=== PATIENT | female | born 1985 | race Caucasian/White ===

== ENCOUNTER 2020-03-10 09:07 | Day surgery (SDC) | payer OTHER ==
[2020-03-08 09:14] VITALS: BMI 26.5
--- NOTE | 2020-03-09 19:48 | P.HPOB ---
History of Present Illness H&P Date: 03/09/20 Chief Complaint: Menorrhagia with irregular cycle This is a 34 y.o. female, 3, para 2, who presents for dilatation and curettage with hysteroscopy due to irregular, heavy bleeding despite oral contraceptives. She bleeds for 2-3 weeks out of the cycle, sometimes heavy, changing pads every 20 minutes with large clots. This has been occuring for the last 6 months. She has also been fatigued and dizzy. Ultrasound showed uterus measuring 8.1 x 3.8 x 4.1 cm with a questionable 0.9 cm fibroid within the endometrium. Both ovaries were normal. OB Hx: . History of 2 vaginal deliveries and 1 miscarriage. 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 Normal pap 11/2018. Social Hx: . 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 Review of Systems Constitutional: Reports fatigue, Denies chills, Denies fever Eyes: denies blurred vision, denies pain Ears, nose, mouth and throat: Denies headache, Denies sore throat Cardiovascular: Denies chest pain, Denies shortness of breath Respiratory: Denies cough Gastrointestinal: Denies abdominal pain, Denies diarrhea, Denies nausea, Denies vomiting Genitourinary: Reports menorrhagia Menstruation: Reports menses 8 or > days, Reports menses variable, Reports period heavy Musculoskeletal: Denies myalgias Integumentary: Denies pruritus, Denies rash Neurological: Reports weakness (dizziness), Denies numbness Psychiatric: Reports anxiety Hematologic/Lymphatic: Reports easy bleeding Past Medical History Additional Past Medical History / Comment(s): Alopecia; HEAVY IRREG MENSES WITH CLOTS History of Any Multi-Drug Resistant Organisms: None Reported Past Surgical History: No Surgical Hx Reported Past Anesthesia/Blood Transfusion Reactions: No Reported Reaction Past Psychological History: No Psychological Hx Reported Smoking Status: Never smoker Past Alcohol Use History: Occasional Past Drug Use History: None Reported - Past Family History Mother Family Medical History: No Reported History Medications and Allergies Home Medications Medication Instructions Recorded Confirmed Type Norethindrone-E.estradiol-Iron 1 each PO HS 03/08/20 03/10/20 History [June Fe 24 Tablet] Allergies Allergy/AdvReac Type Severity Reaction Status Date / Time No Known Allergies Allergy Verified 03/10/20 09:41 Exam Osteopathic Statement: *. No significant issues noted on an osteopathic struct ural exam other than those noted in the History and Physical/Consult. HEENT: within normal limits Heart: regular rate and rhythm Lungs: clear to auscultation bilaterally Abdomen: soft, non-tender Pelvic: uterus retroverted, non-tender, with no adnexal masses or tenderness. Extremities: neg. Charlotte's. Assessment and Plan (1) Menorrhagia with irregular cycle Current Visit: No Status: Acute Code(s): N92.1 - EXCESSIVE AND FREQUENT MENSTRUATION WITH IRREGULAR CYCLE SNOMED Code(s): 096090152 (2) Anemia associated with acute blood loss Current Visit: No Status: Acute Code(s): D62 - ACUTE POSTHEMORRHAGIC ANEMIA SNOMED Code(s): 216828651 Plan: Proceed with dilatation and curettage with hysteroscopy. I have discussed the risks, benefits, and alternative therapies for the above- mentioned procedure and for both sedation/anesthesia as well as necessary blood products administration, if indicated, as they pertain to this patient. The patient has indicated her understanding and acceptance of the risks and procedures discussed.
[~2020-03-10 09:07] MED LIST: DEXAMETHASONE SOD PHOSPHATE 10 MG/ML 1 ML VIAL IV ONE; HYDROmorphone 0.5 MG/0.5 ML SYRINGE IVP PRN; LACTATED RINGERS 1,000 ML IV SCH; ONDANSETRON 4 MG/2 ML VIAL IVP ONE; Pre Op ABX Message 1 EACH MISC MISCELLANE ONE
[2020-03-10] MEDS ORDERED: MIDAZOLAM 2 MG/2 ML VIAL IV ONE (10:04)
[2020-03-10] MEDS ORDERED: KETOROLAC 15 MG/ML 1 ML VIAL ONE (10:38)
[2020-03-10] MEDS ORDERED: fentaNYL (PF) 50 MCG/ML 2 ML AMP ONE (10:38)
[2020-03-10] MEDS ORDERED: MIDAZOLAM 2 MG/2 ML VIAL ONE (10:38)
--- NOTE | 2020-03-10 11:04 | P.OP ---
Date of Procedure: 03/10/20 Preoperative Diagnosis: Menorrhagia with irregular cycle Postoperative Diagnosis: Same Procedure(s) Performed: Dilation and curettage with hysteroscopy Anesthesia: other (Mask general) Surgeon: Radha Cabrera Estimated Blood Loss (ml): 10 Pathology: other (Endometrial curettings) Condition: stable Disposition: same day Indications for Procedure: This is a 34 y.o. female, 3, para 2, who presents for dilatation and curettage with hysteroscopy due to irregular, heavy bleeding despite oral contraceptives. She bleeds for 2-3 weeks out of the cycle, sometimes heavy, changing pads every 20 minutes with large clots. This has been occuring for the last 6 months. She has also been fatigued and dizzy. Ultrasound showed uterus measuring 8.1 x 3.8 x 4.1 cm with a questionable 0.9 cm fibroid within the endometrium. Both ovaries were normal. Operative Findings: Uterus is mid to anteverted position, sounded to 7 cm. Cervix is sounded to 3 cm. Upon hysteroscopy, a fairly large polyp versus submucosal fibroid is noted on the posterior wall. Both tubal ostia are visualized. A moderate amount of endometrial curettings are obtained. Description of Procedure: The patient is taken to the operating room where she is placed in the dorsal lithotomy position. She is prepped and draped in the normal sterile fashion. Her bladder was drained with a catheter and then it is removed. Pelvic exam is performed and uterus is found to be mid to anteverted position with no adnexal masses palpated. A weighted speculum was placed in the patient's vagina and a right angle retractor is used to visualize the cervix. The anterior lip of the cervix is grasped with a single-tooth tenaculum. Of note she does have approximately grade 2 uterine prolapse. The uterus is sounded to 7 cm and the cervix is sounded to 3 cm. Cervix is gently dilated with Ramirez dilators until a hysteroscope can be passed. Hysteroscopy is performed using normal saline. The above noted findings are made and pictures are taken. Next the hysteroscope was withdrawn and the cervix is gently dilated further. A polyp forcep was introduced with a small amount of polypoid type tissue obtained. Next a medium- size sharp curet was introduced and sharp curettage was performed until a gritty texture was noted. The polyp forceps was reintroduced and the previously noted polyp was removed completely. Sharp curettage was performed one further time and a smooth contour was noted. Specimen is removed from the field. The single-tooth tenaculum is removed from the anterior lip of the cervix. No active bleeding is noted. All instrument removed from the vagina. All sponge counts are correct. The patient is then taken to recovery room in stable condition.
[2020-03-10 11:17] VITALS: TEMP 96.8
[2020-03-10 12:40] VITALS: BP 110/71; PULSE 73; RESP 20
== END 2020-03-10 12:57 | disposition home or self-care (01) ==
LOC: OR 09:07
PROVIDERS: ATTEND Obstetrics & Gynecology
DX: N92.1 Excessive and frequent menstruation with irregular cycle (principal); R89.7 Abnormal histological findings in specimens from other organs, systems and tissues; N81.2 Incomplete uterovaginal prolapse; D62 Acute posthemorrhagic anemia; L65.9 Nonscarring hair loss, unspecified; Z87.59 Personal history of other complications of pregnancy, childbirth and the puerperium; Z79.3 Long term (current) use of hormonal contraceptives
CPT/HCPCS: 81025; 88305; 58558; J2250; J1100; J2405; J3010; J1885

== ENCOUNTER → 2021-04-07 | Outpatient (CLI) | payer OTHER ==
[2021-04-07 10:50] LABS: Basophils % (A) 1 %; Eosinophils # (A) 0.1 k/uL (0-0.7); Eosinophils % (A) 3 %; HCT 42.3 % (34.0-46.0); Lymphocytes # (A) 1.1 k/uL (1.0-4.8); Lymphocytes % (A) 24 %; MCHC 33.1 g/dL (31.0-37.0); MCV 93.6 fL (80.0-100.0); Mean Platelet Volume 7.4; Monocytes # (A) 0.3 k/uL (0-1.0); Monocytes % (A) 6 %; Neutrophils # (A) 2.8 k/uL (1.3-7.7); Neutrophils % (A) 64 %; Platelet Count 296 k/uL (150-450); RBC 4.51 m/uL (3.80-5.40); RDW 11.7 % (11.5-15.5); WBC 4.3 k/uL (3.8-10.6)
[2021-04-07 11:07] LABS: African American GFR (CKD) >90 (>60 ml/min/1.73 sqM); Anion Gap 10 mmol/L; Blood Urea Nitrogen 11 mg/dL (7-17); Carbon Dioxide 25 mmol/L (22-30); Chloride 102 mmol/L (98-107); Glucose 87 mg/dL (74-99); Non-African American GFR(CKD) >90 (>60 ml/min/1.73 sqM); Potassium 4.3 mmol/L (3.5-5.1); Sodium 137 mmol/L (137-145)
== END | disposition home or self-care (01) ==
LOC: LABPAT 10:12
PROVIDERS: ATTEND Obstetrics & Gynecology
DX: Z01.812 Encounter for preprocedural laboratory examination (principal)
CPT/HCPCS: 80048; 85025; 86850; 86900; 86901

== ENCOUNTER 2021-04-13 05:47 | Observation (INO) | payer OTHER ==
[2021-04-05 15:28] VITALS: BMI 26.5
[2021-04-07 10:50] LABS: Basophils % (A) 1 %; Eosinophils # (A) 0.1 k/uL (0-0.7); Eosinophils % (A) 3 %; HCT 42.3 % (34.0-46.0); Lymphocytes # (A) 1.1 k/uL (1.0-4.8); Lymphocytes % (A) 24 %; MCHC 33.1 g/dL (31.0-37.0); MCV 93.6 fL (80.0-100.0); Mean Platelet Volume 7.4; Monocytes # (A) 0.3 k/uL (0-1.0); Monocytes % (A) 6 %; Neutrophils # (A) 2.8 k/uL (1.3-7.7); Neutrophils % (A) 64 %; Platelet Count 296 k/uL (150-450); RBC 4.51 m/uL (3.80-5.40); RDW 11.7 % (11.5-15.5); WBC 4.3 k/uL (3.8-10.6)
[2021-04-07 11:07] LABS: African American GFR (CKD) >90 (>60 ml/min/1.73 sqM); Anion Gap 10 mmol/L; Blood Urea Nitrogen 11 mg/dL (7-17); Carbon Dioxide 25 mmol/L (22-30); Chloride 102 mmol/L (98-107); Glucose 87 mg/dL (74-99); Non-African American GFR(CKD) >90 (>60 ml/min/1.73 sqM); Potassium 4.3 mmol/L (3.5-5.1); Sodium 137 mmol/L (137-145)
--- NOTE | 2021-04-13 05:38 | P.HPOB ---
History of Present Illness H&P Date: 04/12/21 Chief Complaint: Menorrhagia with irregular cycle This is a 35 y.o. female, 3, para 2, who presents for total vaginal hysterectomy, possible total abdominal hysterectomy with bilateral salpingectomy due to menorrhagia with irregular cycle. She also has 1st degree uterine prolapse. 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 She has tried oral contraceptives. Her bleeding issues have been going on for about a year and a half. Her ultrasound showed uterus measuring 7.7 x 4.2 x 3.7 cm with endometrium 1.5 cm, inhomogenous echotexture, possible small mural fibroids, and right ovary with small simple cysts. Left ovary was normal. She did have a D&C with hysteroscopy approximately 1 year ago and this did not help her bleeding and findings suggestive of submucosal fibroids. OB Hx: . History of 2 vaginal deliveries and 1 miscarriage. 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 Review of Systems Constitutional: Reports fatigue, Denies chills, Denies fever Eyes: denies blurred vision, denies pain Ears, nose, mouth and throat: Denies headache, Denies sore throat Cardiovascular: Denies chest pain, Denies shortness of breath Respiratory: Denies cough Gastrointestinal: Denies abdominal pain, Denies diarrhea, Denies nausea, Denies vomiting Genitourinary: Reports dysmenorrhea, Reports menorrhagia, Reports pelvic pain Menstruation: Reports menses variable, Reports period heavy Musculoskeletal: Reports low back pain Integumentary: Denies pruritus, Denies rash Neurological: Denies numbness, Denies weakness Past Medical History Additional Past Medical History / Comment(s): Alopecia; HEAVY IRREG MENSES . History of Any Multi-Drug Resistant Organisms: None Reported Additional Past Surgical History / Comment(s): D&C, hysteroscopy Past Anesthesia/Blood Transfusion Reactions: No Reported Reaction Past Psychological History: Anxiety Smoking Status: Never smoker Past Alcohol Use History: Occasional Past Drug Use History: None Reported - Past Family History Mother Family Medical History: No Reported History Medications and Allergies Home Medications Medication Instructions Recorded Confirmed Type Norethindrone-E.estradiol-Iron 1 each PO HS 03/08/20 04/05/21 History [ Tablet] Spironolactone [Aldactone] 50 mg PO DAILY 04/05/21 04/05/21 History Spironolactone [Aldactone] 100 mg PO DAILY 04/05/21 04/05/21 History Allergies Allergy/AdvReac Type Severity Reaction Status Date / Time No Known Allergies Allergy Verified 04/13/21 06:22 Exam Osteopathic Statement: *. No significant issues noted on an osteopathic stru ctural exam other than those noted in the History and Physical/Consult. HEENT: within normal limits Heart: regular rate and rhythm Lungs: clear to auscultation bilaterally Abdomen: soft, non-tender Pelvic: uterus small, mid-position with 1st degree prolpase, no adnexal masses, but mild tenderness bilateral adnexa Extremities: neg. Charlotte's Results Result Diagrams: 04/07/21 10:23 04/07/21 10:23 Assessment and Plan (1) Uterine prolapse Current Visit: No Status: Acute Code(s): N81.4 - UTEROVAGINAL PROLAPSE, UNSPECIFIED SNOMED Code(s): 89157350 (2) Menorrhagia with irregular cycle Current Visit: No Status: Acute Code(s): N92.1 - EXCESSIVE AND FREQUENT MENSTRUATION WITH IRREGULAR CYCLE SNOMED Code(s): 561269796 Plan: Proceed with total vaginal hysterectomy with possible total abdominal hysterectomy with bilateral salpingectomy. I have discussed the risks, benefits, and alternative therapies for the above- mentioned procedure and for both sedation/anesthesia as well as necessary blood products administration, if indicated, as they pertain to this patient. The patient has indicated her understanding and acceptance of the risks and procedures discussed.
[2021-04-13] MEDS ORDERED: LIDOCAINE 1% (10MG/ML) FOR IV START INTRADERMA PRN (06:07)
[2021-04-13] MEDS ORDERED: ONDANSETRON 4 MG/2 ML VIAL IVP ONE (06:07)
[2021-04-13] MEDS ORDERED: SCOPOLAMINE 1.5MG/72HR PATCH TRANSDERM ONE (06:07)
[2021-04-13] MEDS ORDERED: DEXAMETHASONE SOD PHOSPHATE 4 MG/ML 1 ML VIAL IV ONE (06:07)
[2021-04-13] MEDS: LACTATED RINGERS 1,000 ML IV SCH ×2 (06:14→19:05)
[2021-04-13] MEDS ORDERED: HYDROmorphone 0.5 MG/0.5 ML SYRINGE IVP PRN (07:00)
[2021-04-13] MEDS ORDERED: .fentaNYL (PF) 50 MCG/ML 2 ML AMP IVP ONE (07:03)
[2021-04-13] MEDS ORDERED: MIDAZOLAM 2 MG/2 ML VIAL IVP ONE (07:03)
[2021-04-13] MEDS ORDERED: .fentaNYL (PF) 50 MCG/ML 2 ML AMP ONE (07:30)
[2021-04-13] MEDS ORDERED: MORPHINE SULFATE (PF) 0.3 MG/0.3 ML SYR ONE (07:30)
[2021-04-13] MEDS ORDERED: LIDOCAINE 1% INJ 10MG/ML (20 ML MDV) ONE (07:30)
[2021-04-13] MEDS ORDERED: SUCCINYLCHOLINE CHLORIDE 100 MG/5 ML SYR IV ONE (07:30)
[2021-04-13] MEDS ORDERED: PROPOFOL 10 MG/ML 20 ML VIAL IV ONE (07:30)
[2021-04-13] MEDS ORDERED: BACITRACIN ZINC 500 UNIT/GM OINT 28.4 GM TUBE TOPICAL ONE ×2 (08:07→08:21)
--- NOTE | 2021-04-13 08:31 | P.OP ---
Date of Procedure: 04/13/21 Preoperative Diagnosis: Menorrhagia with irregular cycle Uterine prolapse grade 1 Postoperative Diagnosis: Same Procedure(s) Performed: Total vaginal hysterectomy Anesthesia: spinal (Duramorph) Surgeon: Radha Cabrera Roaster Supervisor #1: Edwin Kelly Estimated Blood Loss (ml): 20 Pathology: other (Uterus with cervix) Condition: stable Disposition: floor Indications for Procedure: This is a 35 y.o. female, 3, para 2, who presents for total vaginal hy sterectomy, possible total abdominal hysterectomy with bilateral salpingectomy due to menorrhagia with irregular cycle. She also has 1st degree uterine prolapse. 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 She has tried oral contraceptives. Her bleeding issues have been going on for about a year and a half. Her ultrasound showed uterus measuring 7.7 x 4.2 x 3.7 cm with endometrium 1.5 cm, inhomogenous echotexture, possible small mural fibroids, and right ovary with small simple cysts. Left ovary was normal. She did have a D&C with hysteroscopy approximately 1 year ago and this did not help her bleeding and findings suggestive of submucosal fibroids. Operative Findings: Uterus is midposition, small. No adnexal masses are palpated. Grade 1 uterine prolapse is noted. There is also noted to be a small vaginal polyp at the introitus at 6 o'clock position. Both ovaries are visualized and appeared normal and both tubes appeared normal. Description of Procedure: The patient is taken the operating room where she is placed in the dorsal lithotomy position. She is prepped and draped in the normal sterile fashion. Next a weighted speculum was placed in the patient's vagina and a right angle retractor was used to visualize the cervix. The anterior lip of the cervix is grasped with a single-tooth tenaculum. Next the cervix was circumferentially injected with one amp of epinephrine to 150 mL of normal saline. Next the cervix was circumscribed with a scalpel. The vaginal mucosa was pushed away from the cervix with a sponge. Next the uterosacral ligaments are clamped on either side with a Juani clamp, cut with Stuart scissors, and then sutured with 0 Vicryl suture in a Juani transfixion stitch and then held on either side with a straight hemostat. Next the posterior peritoneal reflection was identified and entered sharply with Stuart scissors. The edges of the vaginal mucosa was then tagged with 0 Vicryl suture and held with a curved hemostat for identification. Next a longbilled weighted speculum was placed through the posterior peritoneal reflection. Next the cardinal ligaments were clamped on either side with Juani clamps, cut with Stuart scissors, and then sutured with 0 Vicryl suture in Juani transfixion stitches and cut. Next the vesicouterine peritoneum reflection is identified and entered sharply with Metzenbaum scissors. A right angle bladder retractor is then used to retract the bladder. The uterine arteries are clamped on either side with Juani clamps, cut with Stuart scissors, and then sutured with 0 Vicryl suture in Juani transfixion stitches. The round ligament is also clamped on either side with a Juani clamp, cut with Stuart scissors, and sutured with 0 Vicryl suture in Juani transfixion stitches. Next the uterine ovarian ligament and tube were clamped on either side with a Juani clamp, cut with Stuart scissors, and then sutured with 0 Vicryl suture in a [id number] stitch, flashed, and then free tied with another suture of 0 Vicryl suture. These pedicles were held with a straight Jamil for identification. The uterus is removed from the field. Good hemostasis is noted. Next the peritoneum is closed with 0 Vicryl suture in a pursestring fashion incorporating all the held ligaments. Both tubes and ovaries are visualized and appeared normal. Next the uterine ovarian ligaments are tied together in the middle and cut. Next the vaginal cuff is sutured with 0 Vicryl suture in a running locked fashion. The uterosacral ligaments were also tied together in the midline prior to completely closing the vaginal cuff. Excellent hemostasis is noted. There is a small epithelial polyp right at the introitus at 6 o'clock position on a small stalk that is removed with a scalpel and then the area sutured with 3-0 Vicryl suture in a running locked fashion. The Manjarrez catheter is inserted and clear urine is noted. Next the vagina is packed with one-inch iodoform gauze with bacitracin ointment. All sponge and needle counts are correct and the patient is then taken to recovery room in stable condition.
[2021-04-13] MEDS ORDERED: KETOROLAC 30 MG/ML 1 ML VIAL ONE (09:02)
[2021-04-13] MEDS ORDERED: KETOROLAC 15 MG/ML 1 ML VIAL IVP ONE (09:03)
--- NOTE | 2021-04-13 10:02 | P.ANPRN ---
Procedure Note - Anesthesia - Epidural/Spinal Spinal Time Out Performed: Yes Date of Procedure: 04/13/21 Procedure Start Time: : Procedure Stop Time: 07:14 Location of Patient: PreOp Indication: Acute Post-Operative Pain Sedation Type: Sedate with meaningful contact maintained Preparation: Sterile Prep Position: Sitting Catheter: None Needle Guage: 25 Injectate: Other (Duramorph 300mcg + fentanyl 25mcg) Blood Aspirated: No Pain Paresthesia on Injection Noted: No Events: Uneventful and Well Tolerated
[2021-04-13] MEDS ORDERED: SPIRONOLACTONE 25 MG TAB PO SCH ×4 (10:47→21:00)
[2021-04-13] MEDS ORDERED: KETOROLAC 15 MG/ML 1 ML VIAL IVP PRN (10:47)
[2021-04-13] MEDS ORDERED: ZOLPIDEM 5 MG TAB PO PRN (10:47)
[2021-04-13] MEDS ORDERED: ONDANSETRON 4 MG/2 ML VIAL IVP PRN (10:47)
[2021-04-13] MEDS ORDERED: HYDROcodone/APAP 5-325MG 1 EACH TAB PO PRN (10:47)
[2021-04-13] MEDS ORDERED: SIMETHICONE 80 MG CHEWABLE PO PRN (10:47)
[2021-04-13] MEDS ORDERED: IBUPROFEN 600 MG TAB PO PRN (10:47)
[2021-04-13] MEDS ORDERED: diphenhydrAMINE 50 MG/ML 1 ML VIAL IVP PRN (10:47)
[2021-04-13] MEDS: SENNOSIDES-DOCUSATE SODIUM 1 EACH TAB PO SCH ×2 (13:17→20:14)
[2021-04-13] MEDS: METOCLOPRAMIDE 5 MG/ML 2 ML VIAL IVP PRN (13:44)
[2021-04-13] MEDS: KETOROLAC 30 MG/ML 1 ML VIAL IVP PRN ×2 (15:11→20:13)
[2021-04-14 02:28] VITALS: RESP 16
[2021-04-14] MEDS: KETOROLAC 30 MG/ML 1 ML VIAL IVP PRN ×2 (02:28→12:00)
[2021-04-14 07:24] LABS: Basophils % (A) 0 %; Eosinophils % (A) 1 %; HCT 35.3 % (34.0-46.0); Lymphocytes # (A) 1.4 k/uL (1.0-4.8); Lymphocytes % (A) 22 %; MCHC 33.9 g/dL (31.0-37.0); MCV 91.5 fL (80.0-100.0); Mean Platelet Volume 7.5; Monocytes # (A) 0.4 k/uL (0-1.0); Monocytes % (A) 6 %; Neutrophils # (A) 4.3 k/uL (1.3-7.7); Neutrophils % (A) 70 %; Platelet Count 220 k/uL (150-450); RBC 3.86 m/uL (3.80-5.40); RDW 11.7 % (11.5-15.5); WBC 6.1 k/uL (3.8-10.6)
[2021-04-14] MEDS ORDERED: ACETAMINOPHEN TAB 325 MG TAB PO PRN (07:39)
[2021-04-14] MEDS: METOCLOPRAMIDE 5 MG/ML 2 ML VIAL IVP PRN (08:47)
[2021-04-14 08:48] VITALS: BP 100/66; PULSE 89; TEMP 98.2
[2021-04-14] MEDS: SENNOSIDES-DOCUSATE SODIUM 1 EACH TAB PO SCH (08:48)
--- NOTE | 2021-04-14 10:12 | P.PN ---
Progress Note - Text 04/14/21 633am 35-year-old female status post vaginal hysterectomy. Patient had a spinal Duramorph for postop pain control , patient seen and evaluated this morning for postop pain control patient has a VAS of 2 patient did have complains of nausea this morning and was being treated for that.
--- NOTE | 2021-04-14 10:26 | P.DS ---
Providers Date of admission: 04/13/21 23:32 Expected date of discharge: 04/14/21 Attending physician: Radha Cabrera Primary care physician: Franky Almanza MD - Discharge Diagnosis(es) (1) Uterine prolapse Current Visit: No Status: Acute (2) Menorrhagia with irregular cycle Current Visit: No Status: Acute Hospital Course: This is a 35-year-old female who underwent a total vaginal hysterectomy on 04/13/2021 with spinal Duramorph anesthesia and general anesthesia. Postoperatively she has done well. Is starting to have some more pain this morning. She did take and [facility] this morning but on empty stomach and has some nausea currently. She is passing flatus but no bowel movement yet. She has urinated without difficulty. She has no vaginal bleeding. She would like to go home today. Vital signs are stable. Abdomen is soft with positive bowel sounds 4. Chelly-pad shows no bleeding. Extremities show negative Homans. Impression is status post total vaginal hysterectomy postoperative day #1. Plan is to discharge home later today. Routine postoperative instructions are given. She is advised to follow up in the office in approximately 1 week for a postoperative check. She is advised to have limited activities with no heavy lifting, no tub baths, and no intercourse. She is advised to call the office if she has any further questions or concerns prior to her appointment time. She will be given a prescription for ibuprofen 600 mg every 6 hours as needed and [facility] 5/325 as needed. She has been counseled regarding opioid use and has signed a consent form. Procedures: Total vaginal hysterectomy on 04/13/2021 Patient Condition at Discharge: Stable Plan - Discharge Summary Discharge Rx Participant: No New Discharge Prescriptions: New Ibuprofen [Motrin] 600 mg PO Q6HR PRN #60 tab PRN Reason: Mild Discomfort HYDROcodone/APAP 5-325MG [[facility] 5-325] 1 each PO Q6HR PRN #20 tab PRN Reason: Pain No Action Norethindrone-E.estradiol-Iron [Junel Fe 24 Tablet] 1 each PO HS Spironolactone [Aldactone] 50 mg PO DAILY Spironolactone [Aldactone] 100 mg PO DAILY Discharge Medication List Norethindrone-E.estradiol-Iron [Junel Fe 24 Tablet] 1 each PO HS 03/08/20 [History] Spironolactone [Aldactone] 50 mg PO DAILY 04/05/21 [History] Spironolactone [Aldactone] 100 mg PO DAILY 04/05/21 [History] HYDROcodone/APAP 5-325MG [[facility] 5-325] 1 each PO Q6HR PRN #20 tab 04/14/21 [Rx] Ibuprofen [Motrin] 600 mg PO Q6HR PRN #60 tab 04/14/21 [Rx] Follow up Appointment(s)/Referral(s): Radha Cabrera DO [Doctor of Osteopathic Medicine] - 1 Week Activity/Diet/Wound Care/Special Instructions: Activity as tolerated. Diet as tolerated. May shower, but no tub baths for at least 1 week. No intercourse. No heavy lifting. Discharge Disposition: HOME SELF-CARE
== END 2021-04-14 14:17 | disposition home or self-care (01) ==
LOC: OR 05:47 → 6PED 08:34 → OR 23:32 → 6PED 23:32
PROVIDERS: ADMIT Obstetrics & Gynecology; ATTEND Obstetrics & Gynecology
DX: N81.4 Uterovaginal prolapse, unspecified (principal); N92.1 Excessive and frequent menstruation with irregular cycle; N84.2 Polyp of vagina; L65.9 Nonscarring hair loss, unspecified; F41.9 Anxiety disorder, unspecified; Z79.3 Long term (current) use of hormonal contraceptives; Z79.899 Other long term (current) drug therapy; Z87.59 Personal history of other complications of pregnancy, childbirth and the puerperium
CPT/HCPCS: 81025; 86900; 86901; 80048; 85025 ×2; 86850; 88307; 87635; 58260; 62322; G0378; J2250; J0171; J1100; J2765 ×2; J0690; J2405; J2001; J2274; J3010; J1885 ×3; J0330; J2704; J1170